=== PATIENT | female | born 1960 | race Caucasian/White ===

== ENCOUNTER → 2023-01-22 09:28 | Outpatient (BNVA) | payer SELFPAY | PROVIDERS: PCP Nurse Practitioner Family; Visit Provider Internal Medicine | DX: E07.9 Disorder of thyroid, unspecified (principal); E04.1 Nontoxic single thyroid nodule; E03.9 Hypothyroidism, unspecified | CPT/HCPCS: 36415; 84439; 84443; 84480 ==

== ENCOUNTER → 2023-05-14 08:47 | Outpatient (BNVA) | payer SELFPAY | PROVIDERS: PCP Family Medicine; Visit Provider Family Medicine | DX: E78.00 Pure hypercholesterolemia, unspecified (principal); I10 Essential (primary) hypertension | CPT/HCPCS: 80053; 80061; 85025 ==

== ENCOUNTER 2023-08-24 12:58 | Outpatient (CLI) | payer SELFPAY ==
--- NOTE | 2023-08-24 13:15 | US_ITS ---
WS: [id number] THYROID ULTRASOUND HISTORY: E04.1 - Nontoxic single thyroid nodule COMPARISON: None available. Right lobe: 1.4 cm x 1.3 cm x 3.6 cm (w x ap x l). Volume: 3.4 cm3. Small caliber heterogeneous and coarse lobe of the thyroid. There is a small calcification measuring 4 x 4 x 4 mm in the inferior pole. Left lobe: 1.0 cm x 0.9 cm x 2.6 cm (w x ap x l). Volume: 1.3 cm3. Very small caliber atrophied gland. No increased vascularity. Isthmus: 0.3 cm. 4 x 2 x 4 mm nodule in the central isthmus. No significant cervical chain adenopathy. Small lymph nodes are identified which are normal in appear ance. IMPRESSION: 1. Atrophied thyroid gland with very coarse echotexture and a few subcentimeter nodules. These nodule s are all very small size. 2. No adenopathy.
== END 2023-08-24 12:59 | disposition home or self-care (01) ==
PROVIDERS: PCP Family Medicine; Visit Provider Internal Medicine
DX: E04.1 Nontoxic single thyroid nodule (principal)
CPT/HCPCS: 76536

== ENCOUNTER → 2023-09-04 11:01 | Outpatient (BNVA) | payer SELFPAY | PROVIDERS: PCP Family Medicine; Visit Provider Internal Medicine | DX: E03.9 Hypothyroidism, unspecified (principal); E04.1 Nontoxic single thyroid nodule; E07.9 Disorder of thyroid, unspecified | CPT/HCPCS: 84439; 84443; 84480 ==

== ENCOUNTER → 2023-11-25 13:32 | Outpatient (BNVA) | payer SELFPAY | PROVIDERS: PCP Family Medicine; Visit Provider Internal Medicine | DX: E07.9 Disorder of thyroid, unspecified (principal); E04.1 Nontoxic single thyroid nodule; E03.9 Hypothyroidism, unspecified | CPT/HCPCS: 84439; 84443 ==

== ENCOUNTER 2025-06-12 13:35 | Outpatient (CLI) | payer MEDICARE, SELFPAY ==
--- NOTE | 2025-06-12 13:40 | MM_ITS ---
WS: [id number] BILATERAL 3D TOMOSYNTHESIS DIGITAL SCREENING MAMMOGRAPHY WITH CAD CLINICAL INFORMATION: SCREENING HISTORY: Screening mammogram. No current complaints. COMPARISON: None. TECHNIQUE: Bilateral CC and MLO views. FINDINGS: The breasts are composed of heterogeneous fibroglandular density tissue, which can limit the detection of small underlying mass lesions. No suspicious mass, asymmetry, calcifications, or architectural distortion. No evidence of malignancy. Punctate and lucent centered calcifications. Biopsy clip upper outer LEFT breast. MM/MM [facility] tomosynthesis [id number] IMPRESSION: DENSITY: The breasts are heterogeneously dense, which may obscure small masses. BI-RADS: 2 - Benign FOLLOW UP: 1 Year Follow-up Recommend return to annual screening mammography.
== END 2025-06-12 13:36 | disposition home or self-care (01) ==
LOC: RAD 13:37
PROVIDERS: PCP Family Medicine; Visit Provider Family Medicine
DX: Z12.31 Encounter for screening mammogram for malignant neoplasm of breast (principal); R92.333 Mammographic heterogeneous density, bilateral breasts; R92.323 Mammographic fibroglandular density, bilateral breasts; R92.1 Mammographic calcification found on diagnostic imaging of breast; Z97.8 Presence of other specified devices
CPT/HCPCS: 77063; 77067